=== PATIENT | female | born 1980 | race Caucasian/White ===

== ENCOUNTER → 2016-12-21 | Outpatient (CLI) | payer OTHER | LOC: FIMAGING 14:52 | PROVIDERS: ATTEND Obstetrics & Gynecology | DX: O09.523 Supervision of elderly multigravida, third trimester (principal); O36.5930 Maternal care for other known or suspected poor fetal growth, third trimester, not applicable or unspecified; Z3A.35 35 weeks gestation of pregnancy ==

== ENCOUNTER → 2018-03-03 | Outpatient (CLI) | payer OTHER | LOC: BMCIMAGING 12:17 | PROVIDERS: ATTEND Internal Medicine | DX: R05 Cough (principal) ==

== ENCOUNTER 2018-06-19 08:10 | Emergency (ER) | payer OTHER ==
[2018-06-19] MEDS ORDERED: IPRATROPIUM/ALBUTEROL 3 ML DEYVIAL ONE (08:23)
--- NOTE | 2018-06-19 08:26 | EDPHY ---
H & P Time Seen by Provider: 06/19/18 08:25 HPI/ROS: Chief complaint. Shortness of breath HPI. Patient 38-year-old female with shortness of breath that began suddenly this morning. She and her flew back from [place] yesterday. She was well and did not have fever or cough. Today with the shortness of breath she has chills and nausea and diarrhea. She had RSV in February. She has a history of asthma. She has some right-sided chest pain and pain behind the right shoulder blade. Symptoms are especially more prominent with breathing. No unusual leg pain or swelling. Also her right index finger was white this morning. She ran it under warm water and it is back to normal. She and her did take a picture of this that they show me and indeed it was white. There was no EpiPen exposure. ROS 10 systems were reviewed and negative with the exception of the elements mentioned in the history of present illness Past Medical/Surgical History: Asthma Social History: , nonsmoker, no alcohol Smoking Status: Never smoked Physical Exam: General Appearance: Alert well-developed female mild distress vital signs are stable. O2 saturation room air is 99% Eyes: Pupils equal and round no pallor or injection. ENT, Mouth: Mucous membranes are moist. Respiratory: There are no retractions, lungs are clear to auscultation. Mild tachypnea Cardiovascular: Regular rate and rhythm. Gastrointestinal: Abdomen is soft and nontender, no masses, bowel sounds normal. Neurological: Awake and alert, sensory and motor exams grossly normal. Skin: Warm and dry, no rashes. Musculoskeletal: Neck is supple nontender. Extremities symmetrical, full range of motion. Psychiatric: Patient is oriented X 3, there is no agitation. Constitutional: Initial Vital Signs Heart Rate 79 06/19/18 08:11 Respiratory Rate 22 H 06/19/18 08:11 Blood Pressure 128/86 H 06/19/18 08:11 O2 Sat (%) 99 06/19/18 08:11 O2 Delivery Mode Room Air O2 (L/minute) 2 Allergies/Adverse Reactions: No Known Allergies Allergy (Unverified 06/19/18 08:14) Medical Decision Making - Diagnostics EKG Interpretation: EKG interpreted by me shows normal sinus rhythm normal interval and axis. QRS is normal there is no significant ST elevation or depression. There is no arrhythmia. The rate is 73 Imaging Results: Imaging Impressions Chest X-Ray 06/19/18 08:33 Impression: Stable negative portable chest. Chest x-ray interpreted by me is normal Procedures: Lakia kyle ED Course/Re-evaluation: Re-evaluation 8:55 a.m.. Lungs are clear. Slight tachypnea. Patient complains of being nauseated. She complains of constant pain behind the right shoulder blade. Zofran is given Albuterol updraft Patient is ambulatory in the emergency department on pulse oximetry. Her pulse ox remains about 86% saturation on room air. She is not hypoxic and has not been hypoxic. Patient, , and I discussed imaging results. We discussed treatment plan including criteria for return and importance of follow-up and further evaluation. They expressed understanding and agreement Differential Diagnosis: This appears to be asthma exacerbation. She has a history of asthma. Because of recent travel we considered pulmonary embolus. She has a normal D-dimer. Patient had blanching of her right index finger at home today that was resolved by the time she got here. The etiology of this is not clear - Data Points Laboratory Results: Laboratory Results 06/19/18 08:35 06/19/18 08:35 06/19/18 06/19/18 06/19/18 08:39 08:35 08:35 WBC RBC Hgb Hct MCV MCH MCHC RDW Plt Count MPV Neut % (Auto) Lymph % (Auto) [place] % (Auto) Eos % (Auto) Baso % (Auto) Nucleat RBC Rel Count Absolute Neuts (auto) Absolute Lymphs (auto) Absolute Monos (auto) Absolute Eos (auto) Absolute Basos (auto) Absolute Nucleated RBC Immature Gran % Immature Gran # D-Dimer 0.34 ug/mLFEU ug/mLFEU (0.00-0.50) Sodium Potassium Chloride Carbon Dioxide Anion Gap BUN Creatinine Estimated GFR Glucose Calcium POC Troponin I 0.00 ng/mL ng/mL (0.00-0.08) Beta HCG, Qual NEGATIVE 06/19/18 06/19/18 08:35 08:35 WBC 14.91 10^3/uL H 10^3/uL (3.80-9.50) RBC 4.67 10^6/uL 10^6/uL (4.18-5.33) Hgb 14.4 g/dL g/dL (12.6-16.3) Hct 41.9 % % (38.0-47.0) MCV 89.7 fL fL (81.5-99.8) MCH 30.8 pg pg (27.9-34.1) MCHC 34.4 g/dL g/dL (32.4-36.7) RDW 12.2 % % (11.5-15.2) Plt Count 203 10^3/uL 10^3/uL (150-400) MPV 11.1 fL fL (8.7-11.7) Neut % (Auto) 91.6 % H % (39.3-74.2) Lymph % (Auto) 4.4 % L % (15.0-45.0) [place] % (Auto) 2.8 % L % (4.5-13.0) Eos % (Auto) 0.3 % L % (0.6-7.6) Baso % (Auto) 0.4 % % (0.3-1.7) Nucleat RBC Rel Count 0.0 % % (0.0-0.2) Absolute Neuts (auto) 13.67 10^3/uL H 10^3/uL (1.70-6.50) Absolute Lymphs (auto) 0.65 10^3/uL L 10^3/uL (1.00-3.00) Absolute Monos (auto) 0.42 10^3/uL 10^3/uL (0.30-0.80) Absolute Eos (auto) 0.04 10^3/uL 10^3/uL (0.03-0.40) Absolute Basos (auto) 0.06 10^3/uL 10^3/uL (0.02-0.10) Absolute Nucleated RBC 0.00 10^3/uL 10^3/uL (0-0.01) Immature Gran % 0.5 % % (0.0-1.1) Immature Gran # 0.07 10^3/uL 10^3/uL (0.00-0.10) D-Dimer Sodium 135 mEq/L mEq/L (135-145) Potassium 3.5 mEq/L mEq/L (3.5-5.2) Chloride 104 mEq/L mEq/L (97-110) Carbon Dioxide 20 mEq/l L mEq/l (22-31) Anion Gap 11 mEq/L mEq/L (6-14) BUN 17 mg/dL mg/dL (7-23) Creatinine 0.9 mg/dL mg/dL (0.6-1.0) Estimated GFR > 60 Glucose 103 mg/dL H mg/dL (70-100) Calcium 9.1 mg/dL mg/dL (8.5-10.4) POC Troponin I Beta HCG, Qual Medications Given: Discontinued Medications Albuterol (Proventil Neb) 3 ml IH EDNOW ONE Stop: 06/19/18 10:16 Last Admin: 06/19/18 10:26 Dose: 3 ml Albuterol/Ipratropium (Duoneb) 3 ml IH EDNOW ONE Stop: 06/19/18 08:32 Last Admin: 06/19/18 08:32 Dose: 3 ml Ondansetron HCl (Zofran) 4 mg IVP EDNOW ONE Stop: 06/19/18 09:02 Last Admin: 06/19/18 09:25 Dose: 4 mg Prednisone (Prednisone) 60 mg PO EDNOW ONE Stop: 06/19/18 09:43 Last Admin: 06/19/18 09:58 Dose: 60 mg Point of Care Test Results: Chemistry 06/19/18 08:39 POC Troponin I 0.00 ng/mL ng/mL (0.00-0.08) Departure - Departure Disposition: Home, Routine, Self-Care Clinical Impression: Exacerbation of asthma Qualifiers: Asthma severity: moderate Asthma persistence: unspecified Qualified Code(s): J45.901 - Unspecified asthma with (acute) exacerbation Condition: Good Instructions: Asthma (ED) Additional Instructions: Albuterol inhaler using 2 puffs every 4-6 hours for breathing. Prednisone 40 mg daily for 4-5 days Return for worsening symptoms Recheck by Dr. Dickson in the next 1-2 days without fail Referrals: NONE *PRIMARY CARE P,. [Primary Care Provider] - As per Instructions Colette Dickson MD [[facility] [place]] - 1-2 days without fail
[2018-06-19] MEDS ORDERED: IPRATROPIUM/ALBUTEROL 3 ML DEYVIAL IH ONE (08:31)
[2018-06-19 08:53] LABS: PLATELET COUNT 203 10^3/uL (150-400)
[2018-06-19] MEDS ORDERED: ONDANSETRON 4 MG/2 ML VIAL IVP ONE (09:01)
[2018-06-19] MEDS ORDERED: predniSONE 20 MG TAB PO ONE (09:42)
--- NOTE | 2018-06-19 09:58 | CPEKG ---
Test Reason : OPEN Blood Pressure : / mmHG Vent. Rate : 073 BPM Atrial Rate : 072 BPM P-R Int : 145 ms QRS Dur : 097 ms QT Int : 405 ms P-R-T Axes : 079 079 043 degrees QTc Int : 447 ms Sinus rhythm Confirmed by Ulysses Conde ([id number]) on 06/19/2018 9:58:01 AM Referred By: PHYSICIAN ED Confirmed By:Ulysses Conde
[2018-06-19] MEDS ORDERED: ALBUTEROL 3 ML DEYVIAL IH ONE (10:15)
[2018-06-19 10:42] VITALS: BP 107/50
== END 2018-06-19 10:42 | disposition home or self-care (01) ==
DX: R06.02 Shortness of breath (principal); J45.909 Unspecified asthma, uncomplicated
CPT/HCPCS: 84484-ER; 96374; J2405; J7512; J7613

== ENCOUNTER → 2018-06-22 | Outpatient (CLI) | payer OTHER ==
[~2018-06-22] MED LIST: IOPAMIDOL (ISOVUE 370) 100 ML BTL IV ONE
== END ==
LOC: FIMAGING 14:43
PROVIDERS: ATTEND Allergy & Immunology Allergy
DX: R06.02 Shortness of breath (principal); R91.8 Other nonspecific abnormal finding of lung field; M95.4 Acquired deformity of chest and rib
CPT/HCPCS: Q9967

== ENCOUNTER → 2018-07-28 | Outpatient (CLI) | payer OTHER | LOC: BMCIMAGING 11:36 ==